=== PATIENT | male | born 1940 | race Hispanic/Latino ===

== ENCOUNTER 2018-01-18 07:49 | Outpatient (CLI) | payer MEDICARE, MEDICAID ==
--- NOTE | 2018-01-18 09:19 | ULT ---
ULTRASOUND RENAL BILATERAL STANDARD: Date: 01/18/18 HISTORY: Chronic kidney disease. COMPARISON: None. FINDINGS: Right kidney measures 8.3 x 4.6 x 4.5 cm. Left kidney measures 9.0 x 4.5 x 4.6 cm. Pre-void urinary b ladder volume is 11 mL. No renal mass, hydronephrosis, or abnormal calcifications. IMPRESSION: Small bilateral kidneys. No evidence of obstructive uropathy. POS: [facility]
== END 2018-01-18 07:50 | disposition home or self-care (01) ==
LOC: ULT 07:49
PROVIDERS: ATTEND Internal Medicine Nephrology
DX: N18.3 Chronic kidney disease, stage 3 (moderate) (principal)
CPT/HCPCS: 76770

== ENCOUNTER 2023-07-14 17:02 | Emergency (ER) | payer MEDICARE, MEDICAID | END 2023-07-14 18:08 | disposition home or self-care (01) | LOC: ERS 17:02 | DX: G51.0 Bell's palsy (principal); E11.9 Type 2 diabetes mellitus without complications; I10 Essential (primary) hypertension; E78.5 Hyperlipidemia, unspecified; Z79.84 Long term (current) use of oral hypoglycemic drugs; Z79.899 Other long term (current) drug therapy; Z79.82 Long term (current) use of aspirin | CPT/HCPCS: 99284 ==